=== PATIENT | male | born 1980 | race Caucasian/White ===

== ENCOUNTER 2020-07-26 08:06 | Day surgery (SDC) | payer BC ==
[~2020-07-26 08:06] MED LIST: LACTATED RINGERS 1000 ML IV PRN; LIDOCAINE 0.5% INJ-PF (5 MG/ML) 50 ML SDV SUBCUT PRN
[2020-07-26] MEDS ORDERED: PROPOFOL INJ 200 MG/20 ML VIAL IV ONE ×2 (09:22→10:30)
[2020-07-26] MEDS ORDERED: MORPHINE SULFATE 10 MG/ML INJ IV PRN (09:48)
[2020-07-26] MEDS ORDERED: FENTANYL CITRATE INJ/PF 100 MCG/2 ML AMPUL IV PRN ×2 (09:48)
[2020-07-26] MEDS ORDERED: DIPHENHYDRAMINE HCL 50 MG/ML VIAL IV PRN (09:48)
[2020-07-26] MEDS ORDERED: MEPERIDINE HCL/PF INJ 25 MG/1 ML DISP.SYRIN IV PRN (09:48)
[2020-07-26] MEDS ORDERED: PROMETHAZINE HCL INJ 25 MG/1 ML VIAL IV PRN (09:48)
--- NOTE | 2020-07-26 10:38 | Discharge Summary ---
Discharge Summary (SDC) - Discharge Final Diagnosis: rectal bleeding. Large internal and external hemorrhoids Date of Surgery: 07/26/20 Discharge Date: 07/26/20 Condition: Stable Treatment or Instructions: Discharge home. Diet as tolerated. Activity: Nonstrenuous. Warm sitz bath/tub soaks twice daily and after bowel movements. 5% lidocaine ointment, apply to rectum 3 times daily and as needed. Fiber and stool softeners twice daily. Follow-up with [facility] in 3 weeks. Referrals: MARIPOSA ERAZO PA-C [Primary Care Provider] - Discharge Diet: As Tolerated Respiratory Treatments at Home: Deep Breathing/Coughing, Incentive Spirometer Discharge Activity: Balance Activity w/Rest, No Lifting Over 10 Pounds, No Lifting/Push/Pulling Home Care Assistance: None Needed Report the Following to Your Physician Immediately: Shortness of Breath, Nausea, Vomiting, Increase in Pain, Unusual Bleeding, Redness, Swelling, Warmth
--- NOTE | 2020-07-26 10:42 | Operative Report ---
Nonrecallable Operative Report DATE OF SURGERY: 07/26/20 PREOPERATIVE DIAGNOSIS: Rectal bleeding POSTOPERATIVE DIAGNOSIS: Large internal and external hemorrhoids OPERATION: 1. Colonoscopy to the cecum. 2. Rubber band ligation of internal hemorrhoids x5 SURGEON: TRAY SMITH ANESTHESIA: LMAC TISSUE REMOVED OR ALTERED: None COMPLICATIONS: None apparent ESTIMATED BLOOD LOSS: Minimal PROCEDURE: Drains/implants: None. Procedure in detail: After informed consent was obtained, the patient was brought into the operating room and laid in the left lateral decubitus position. The endoscope was passed up the rectum, sigmoid colon, descending colon, across the transverse colon, down the ascending colon, and into the cecum. The ileocecal valve and appendiceal orifice were identified. The scope was then withdrawn, circumferentially noting the mucosa. The prep was fair. Multiple washings and suctionings were required in order to visualize the entirety of the mucosa. This was successful. The scope was withdrawn past the ascending colon, transverse colon, down the descending colon, sigmoid colon, and into the rectum. In the rectum, a retroflexion maneuver was performed noting very large internal hemorrhoids. The scope was straightened, air was suctioned from the rectum, the scope was removed, and this portion of the procedure was concluded. Please note that there were no masses, lesions, ulcerations, diverticula, or evidence of any other abnormality throughout the colon (aside from the aforementioned hemorrhoids). Attention was then turned to inspection of the anus. The Hill-Archibald retractor was inserted. There were very large internal and external hemorrhoids present circumferentially. The internal hemorrhoids were ligated using the rubber band ligation device. This was done circumferentially. 5 rubber bands were placed in total. After this was completed, the Hill-Archibald retractor was removed, and the procedure was concluded. All sponge, instrument, and needle counts were correct x2. Condition: Stable.
[2020-07-26 12:31] VITALS: BP 140/88
== END 2020-07-26 12:05 | disposition home or self-care (01) ==
LOC: END 08:06
PROVIDERS: ATTEND Surgery
DX: K62.5 Hemorrhage of anus and rectum (principal); K64.4 Residual hemorrhoidal skin tags; K64.8 Other hemorrhoids; Z01.812 Encounter for preprocedural laboratory examination; Z20.828 Contact with and (suspected) exposure to other viral communicable diseases; F17.210 Nicotine dependence, cigarettes, uncomplicated
CPT/HCPCS: 45378; 46221; U0003; J2704; C9803; 87635